=== PATIENT | male | born 1945 | race Caucasian/White ===

== ENCOUNTER 2016-08-02 08:18 | Emergency (ER) | payer MEDICARE, BC ==
[~2016-08-02] VITALS: Ht 175.3 cm; Wt 95.2 kg
[2016-08-02 08:30] VITALS: BP 153/77; PULSE 69; RESP 16; TEMP 98; O2SAT 95
[2016-08-02] MEDS ORDERED: TURM500C PO (08:33)
[2016-08-02] MEDS ORDERED: MULT1TAB84 PO (08:33)
[2016-08-02] MEDS ORDERED: MAGN500T2 PO (08:33)
--- NOTE | 2016-08-02 09:06 | PD ---
HPI Chief Complaint: Injury Time Seen by Provider: 08:49 Travel History International Travel<30 days: No Contact w/Intl Traveler<30days: No Traveled to known affect area: No History of Present Illness HPI This patient injured his right bicep one week ago. He was in the middle of playing tennis and tried to get him back and hit and felt a pain and a tear in the bicep. He has trouble making a muscle. He called to get an orthopedic appointment but was told he couldn't be seen for 2 weeks so he came here instead. Symptoms severity is moderate PFSH Past Medical History Medical History: Denies Significant Hx Influenza Vaccination: No Past Surgical History Surgical History: No Previous Surgery Social History Alcohol Use: Yes (2 DAILY) Tobacco Use: No Substance Use: No Allergies-Medications (Allergen,Severity, Reaction): Coded Allergies: No Known Allergies (Unverified , 08/02/16) Reported Meds & Prescriptions Reported Meds & Active Scripts Active Reported Turmeric (Turmeric (Curcuma Longa)) 500 Mg Cap 500 Mg PO DAILY Multivitamin Adults (Multiple Vitamins W/ Minerals) 1 Tab 1 Tab PO DAILY Magnesium Oxide 500 Mg Tab 500 Mg PO DAILY Review of Systems General / Constitutional: No: Fever HENT: No: Headaches Cardiovascular: No: Chest Pain or Discomfort Physical Exam Narrative SKIN: Focused skin assessment reveals no rash or ulcers. Skin is warm and dry. Palpation shows no induration or nodules. Psych: Normal mood and affect. Normal insight and judgment. Right arm: No bony tenderness. Good range of motion of shoulder and elbow and wrist. There is some bruising of the proximal forearm. No large abnormal lump where the biceps sits. Data Data Last Documented VS Vital Signs Date Time Temp Pulse Resp B/P Pulse Ox O2 Delivery O2 Flow Rate FiO2 08/02/16 08:30 98.0 69 16 153/77 95 MDM Medical Decision Making Medical Screen Exam Complete: Yes Emergency Medical Condition: Yes Medical Record Reviewed: Yes Differential Diagnosis Biceps tear, soft tissue strain, contusion Narrative Course I have reviewed the patient's electronic medical record. Patient has a soft tissue injury of the right arm, likely biceps tendon. Discussed supportive care. He is not having any pain. He needs orthopedic follow-up. He declines a sling. Diagnosis Primary Impression: Rupture of right biceps tendon Qualified Code: S46.211A - Rupture of right biceps tendon, initial encounter Additional Instructions: Follow-up with orthopedist Med/Other Pt SpecificInfo: Other Disposition: 01 DISCHARGE HOME Condition: Stable Nilson Mcleod MD Aug 02, 2016 09:06
[2016-08-20] MEDS ORDERED: NORC5TAB PO (14:58)
== END 2016-08-02 09:24 | disposition home or self-care (01) ==
LOC: PHEFT 08:18
DX: S46.211A Strain of muscle, fascia and tendon of other parts of biceps, right arm, initial encounter (principal); X50.0XXA Overexertion from strenuous movement or load, initial encounter; Y93.73 Activity, racquet and hand sports; Y92.838 Other recreation area as the place of occurrence of the external cause
CPT/HCPCS: 99283

== ENCOUNTER → 2016-08-20 | Day surgery (SDC) | payer MEDICARE, BC ==
[~2016-08-20] VITALS: Ht 175.3 cm; Wt 93.2 kg
[~2016-08-20] MED LIST: *morphine SULFATE 8 MG/ML PERIprocedure ONLY ONE; ACETAMINOPHEN 1000 MG/100 ML VIAL IV ONE; ACETAMINOPHEN/HYDROcodone 325 MG/5 MG TAB PO PRN; BUPIVACAINE/EPINEPHRINE 0.25% 50 ML VIAL ONE; CHLORHEXIDINE GLUCONATE 2 % 1 PACK (2 CLOTHS) TOPICAL PRN; CHLORHEXIDINE GLUCONATE 4% SOLN 120 ML BTL TOPICAL SCH; DO NOT ADM ANY ANTICOAGULANT DRUGS PRN; FAMOTIDINE 20 MG/2 ML VIAL ONE; GENTAMICIN SULFATE 80 MG/2 ML VIAL ONE; INSULIN HUMAN REGULAR 1,000 UNITS/10 ML VIAL SQ PRN; LACTATED RINGER'S 1000 ML IV PRN; MAGN500T2 PO; METOPROLOL TARTRATE 25 MG TAB PO PRN; MIDAZOLAM HCL 2 MG/2 ML VIAL ONE; MULT1TAB84 PO; NEOSTIGMINE 3 MG/3 ML SYR IV ONE; NORC5TAB PO; ONDANSETRON HCL 4 MG/2 ML VIAL IV PRN; ONDANSETRON HCL 4 MG/2 ML VIAL IV PUSH ONE; POVIDONE IODINE 5% (ANTISEPSIS KIT) 4 APPLICATIONS EACH NARE PRN; POVIDONE IODINE 7.5% SCRUB 118 ML BOTTLE TOPICAL SCH; PROPOFOL 200 MG/20 ML AMP IV ONE; SODIUM CHLORID 0.9% 500 ML IV PRN; SODIUM CHLORIDE 0.9% FLUSH 10 ML FLUSH IV FLUSH PRN; SODIUM CHLORIDE 0.9% FLUSH 10 ML FLUSH IV FLUSH SCH; TURM500C PO; ceFAZolin 2 GM PREMIX 50 ML IV SCH; ceFAZolin 2 GM PREMIX 50 ML ONE; fentaNYL CITRATE 250 MCG/5 ML AMP ONE
[2016-08-20 11:15] VITALS: BP 151/92; PULSE 73; RESP 22; TEMP 99; O2SAT 95
--- NOTE | 2016-08-20 14:35 | EKG ---
Date Performed: 08/20/2016 Time Performed: 11:09:32 PTAGE: 71 years EKG: Sinus rhythm NORMAL ECG INTERPRETATION BASED ON A DEFAULT AGE OF 41 YEARS NO PREVIOUS TRACING DOCTOR: Romeo Espitia Interpretating Date/Time 08/20/2016 14:33:47
--- NOTE | 2016-08-20 14:51 | PD.OP ---
cc: Judson Abdullahi MD Operative Report Date of Surgery: August 20, 2016 Preoperative Diagnosis: Right elbow distal biceps tendon rupture with retraction. Right elbow intra-articular loose body. Postoperative Diagnosis: Same Procedure: Right elbow distal biceps tendon repair. Right elbow arthrotomy with removal of loose body through separate incision. Anesthesia: Gen. Surgeon: Judson Abdullahi Applied Technologist(s): XOCHITL Murray The surgical procedure was assisted by my Advanced Registered Nurse Practitioner. My TEST CONDUCTOR presence was necessary throughout this case for the manipulation and positioning of the surgical extremity. My TEST CONDUCTOR was assisting me throughout the duration of this procedure. The skill set of an Advance Registered Nurse Practitioner was medically necessary to complete this procedure. During the surgical case, the surgical instruments inspector was working at the back table and the Advance Registered Nurse Practitioner was directly assisting me. Operation and Findings: Tourniquet time: 63 minutes at 250 mmHg of pressure Estimated blood loss: 10 cc The patient received intravenous Ancef. After the appropriate anesthesia was administered, the patient's arm was prepped and draped in the usual sterile fashion. Local anesthetic was given, and the arm was exsanguinated. The tourniquet was raised to 250 mmHg of pressure. We decided to start with the arthrotomy. On the lateral aspect of the elbow just lateral to the triceps tendon we made incision through skin we dissected to deep fascia. Dissected through the fascia identified the capsule and performed an arthrotomy on the lateral elbow. There was a moderate joint effusion of clear yellow fluid expressed. There was some fibrillation of the capsule noted. We identified a 2 cm loose body in the olecranon fossa. This was removed uneventfully. This had an appearance of calcified cartilage and bone. We irrigated the joint. We then closed the capsule with 2-0 Vicryl followed by closure of the deep fascia with 2-0 Vicryl and closure of skin with 2-0 Vicryl and 3-0 nylon. We proceeded with standard anterior incision transverse in nature to the elbow. We identified the lateral antebrachial cutaneous nerve and this was protected during the entire case. It was retracted out of the way along with the brachial radialis. We identified the distal biceps tendon stump which was retracted with hematoma at the end. We cleaned off the stump and exposed the tendon edges. We used a fiber loop suture in a baseball stitch to hold onto the tendon. The tendon measured 8 mm. We then dissected down the course of the typical biceps tendon region. We identified the recurrent radial artery. This was suture ligated with 2-0 silk tie. We also used similar ties on several intervening veins. We bluntly dissected down to that bicipital tuberosity. We gently elevated some scar tissue that was starting to heal over the tuberosity. We had the arm in full supination. We then placed a guidewire into the middle of the tuberosity. We drilled an 8-1/2 mm reamer unicortical. We placed a biceps button onto the baseball stitched biceps tendon. We delivered the button to the far side of the radial shaft. The button was flipped and then we sequentially pulled on the sutures while walking the tendon into the reamer hole. We did need to bend the elbow in order to do this as there was some tightness to the tendon. We tied the ends of the suture using an arthroscopic knot tire. We then used an [employer] screw size 8 mm which had very nice purchase. One of the suture limbs was placed through the screw. We then tied the suture over the screw. Tourniquet was released. Hemostasis was achieved. The wound was thoroughly irrigated. There was some tension on the tendon with a lack of approximately 15 of extension. We did not try to force full extension as the tendon and muscle will likely stretch over time. The anterior incision was closed with 2- 0 Vicryl followed by 3-0 nylon. The patient's arm was dressed and placed into a posterior splint. The postoperative plan is to protect the elbow with a removable posterior splint with gentle early range of motion. Note that we did not send a specimen of the loose body has no gross pathology was noted about it. Judson Abdullahi MD August 20, 2016 14:51
[2016-08-20 17:12] VITALS: BP 133/73; PULSE 67; RESP 20; TEMP 96.9; O2SAT 95
== END | disposition home or self-care (01) ==
LOC: HSDC 10:28
PROVIDERS: ATTEND Orthopaedic Surgery
DX: S46.211A Strain of muscle, fascia and tendon of other parts of biceps, right arm, initial encounter (principal); M19.021 Primary osteoarthritis, right elbow; M24.021 Loose body in right elbow; K21.9 Gastro-esophageal reflux disease without esophagitis; Z88.1 Allergy status to other antibiotic agents; Z88.8 Allergy status to other drugs, medicaments and biological substances; Z87.891 Personal history of nicotine dependence; X50.0XXA Overexertion from strenuous movement or load, initial encounter; Y93.73 Activity, racquet and hand sports; Y92.39 Other specified sports and athletic area as the place of occurrence of the external cause; Y99.8 Other external cause status
CPT/HCPCS: 24105; 24341; 93005; J0131; J0690; J1580; J2250; J2270; J2405; J2710; J3010